=== PATIENT | male | born 1945 | race Caucasian/White ===

== ENCOUNTER 2019-07-19 05:52 | Inpatient (IN) ==
--- NOTE | 2019-07-04 15:18 | PAT Medication Instructions ---
Medication Instructions Date of Service July 04, 2019 Home Medications acetaminophen [Tylenol Extra Strength] 500 mg PO Q6H PRN cyanocobalamin (vitamin B-12) 1,000 mcg IM MONTHLY diltiazem HCl [Cardizem CD] 240 mg PO QAM ergocalciferol (vitamin D2) [Vitamin D2] 50,000 unit PO MONTHLY escitalopram oxalate 20 mg PO QAM finasteride 5 mg PO QPM gabapentin 300 mg PO UD ibuprofen [Advil] 200 mg PO Q6H PRN omeprazole 40 mg PO QAM oxycodone 10 mg PO Q4H PRN potassium chloride 20 meq PO BID red yeast rice 600 mg PO BID vit C,A-Ik-knbkt-lutein-zeaxan [PreserVision AREDS-2] 1 tab PO BID warfarin 5 mg PO UD ASK your surgeon for instructions ibuprofen [Advil] 200 mg PO Q6H PRN ASK your prescriber and surgeon warfarin 5 mg PO UD STOP taking 2 weeks before surgery (or as soon as possible if surgery is within 2 weeks) red yeast rice 600 mg PO BID vit C,R-Jr-rbukg-lutein-zeaxan [PreserVision AREDS-2] 1 tab PO BID DO NOT take the morning of surgery cyanocobalamin (vitamin B-12) 1,000 mcg IM MONTHLY ergocalciferol (vitamin D2) [Vitamin D2] 50,000 unit PO MONTHLY potassium chloride 20 meq PO BID Take morning of surgery With a small sip of water, OTHERWISE NOTHING TO EAT OR DRINK AFTER MIDNIGHT: acetaminophen [Tylenol Extra Strength] 500 mg PO Q6H PRN (okay to take up to 4 hours prior to surgery if needed) diltiazem HCl [Cardizem CD] 240 mg PO QAM escitalopram oxalate 20 mg PO QAM gabapentin 300 mg PO UD omeprazole 40 mg PO QAM oxycodone 10 mg PO Q4H PRN (okay to take up to 4 hours prior to surgery if needed) Take evening before surgery acetaminophen [Tylenol Extra Strength] 500 mg PO Q6H PRN (if needed) finasteride 5 mg PO QPM gabapentin 300 mg PO UD oxycodone 10 mg PO Q4H PRN (if needed) potassium chloride 20 meq PO BID Other Notes If you have any questions please call us at [phone] or [phone] or [phone] or [phone]
--- NOTE | 2019-07-05 08:41 | Anesthesiology Consultation ---
Date of Service July 05, 2019 Assessment & Plan (1) Encounter for pre-operative examination: CHECK PT/INR/PTT AM DOS Chart Review Chart Review: Acceptable Risk for Surgery and Patient seen in Pre Admission Testing Teaching & Discussion Instructed NPO after midnight before surgery, except medications with 15 cc of water. Medication instructions provided according to the PAT guidelines. History Surgery Operation Date: 07/19/19 07:45 Proposed Procedures p Right Sacroiliac Joint Fusion - Costa Pan DO Height/Weight Height: 6 ft Weight: 77.5 kg Allergies Allergy/AdvReac Type Severity Reaction Status Date / Time Penicillins Allergy Hives Verified 07/19/19 06:26 tramadol Allergy Hives Verified 07/19/19 06:26 Medications Home Medications Medication Instructions Recorded Confirmed Last Taken acetaminophen [Tylenol Extra 500 mg PO Q6H PRN 06/30/19 07/19/19 07/17/19 Strength] cyanocobalamin (vitamin B-12) 1,000 mcg IM MONTHLY 06/30/19 07/19/19 06/19/19 diltiazem HCl [Cardizem CD] 240 mg PO QAM 06/30/19 07/19/19 07/18/19 05:00 ergocalciferol (vitamin D2) 50,000 unit PO MONTHLY 06/30/19 07/19/19 Unknown [Vitamin D2] escitalopram oxalate 20 mg PO QAM 06/30/19 07/19/19 07/18/19 19:00 finasteride 5 mg PO QPM 06/30/19 07/19/19 07/18/19 19:00 gabapentin 300 mg PO UD 06/30/19 07/19/19 07/18/19 19:00 ibuprofen [Advil] 200 mg PO Q6H PRN 06/30/19 07/19/19 07/12/19 omeprazole 40 mg PO QAM 06/30/19 07/19/19 07/18/19 19:00 oxycodone 10 mg PO Q4H PRN 06/30/19 07/19/19 07/18/19 19:00 potassium chloride 20 meq PO BID 06/30/19 07/19/19 07/18/19 19:00 red yeast rice 600 mg PO BID 06/30/19 07/19/19 07/12/19 vit C,L-Xt-edxse-lutein-zeaxan 1 tab PO BID 06/30/19 07/19/19 07/12/19 [PreserVision AREDS-2] warfarin 5 mg PO UD 06/30/19 07/19/19 07/15/19 Active Medications Generic Name Dose Route Start Last Admin Trade Name Claytonq PRN Reason Stop Dose Admin Acetaminophen 1,000 mg 07/19/19 06:00 07/19/19 06:53 Tylenol PO 07/19/19 18:00 1,000 mg PREOP SHANIKA Administration Celecoxib 200 mg 07/19/19 06:00 07/19/19 06:53 Celebrex PO 07/19/19 18:00 200 mg PREOP SHANIKA Administration Gabapentin 300 mg 07/19/19 06:00 07/19/19 06:53 Neurontin PO 07/19/19 18:00 300 mg PREOP SHANIKA Administration Lactated Ringer's 1,000 mls @ 15 mls/hr 07/19/19 06:00 07/19/19 06:54 Lr IV 07/20/19 05:59 15 mls/hr .Q24H SHANIKA Administration NPO Date Last Intake of Fluids: 07/19/19 Time Last Intake of Fluids: 00:00 Date Last Intake of Solids: 07/19/19 Time Last Intake of Solids: 00:00 Past Medical History Medical History Atrial fibrillation Dx > 5 years ago. On warfarin. Follows / [facility] [place] BPH (benign prostatic hyperplasia) Chronic back pain Emphysema lung Noted on CXR. GERD (gastroesophageal reflux disease) Hearing deficit BL FL[facility] History of bleeding peptic ulcer History of hepatitis C Just finished treatment, viral load will be check in 6 months. Hypertension On anticoagulant therapy Osteoarthritis Scoliosis Exercise / Class Metabolic Activity II 4-5 Yardwork/Stairs/Walk up hill (Denies CP or SOB with 1 FOS, remains active) Past Surgical History Surgical History History of back surgery History of cardioversion Unsuccessful, Afib returned. History of colonoscopy History of esophagogastroduodenoscopy (EGD) History of gastrectomy 2/2 bleeding ulcers, 1977. History of knee replacement procedure of left knee History of knee replacement procedure of right knee History of tooth extraction Past Anesthesia History No Hx of Anesthesia Complications and No Family Hx of Anesthesia Complications (Other than father PONV) History of PONV No Hx of PONV and No Hx of Motion Sickness Social History Smoking Status: Never smoker Do You Dip or Chew Tobacco: No Hx Alcohol Use: No Hx Substance Use: No substance use type: does not use Review of Systems Pt denies any recent chest pain, shortness of breath, palpitations, cough, fever or URI. Physical Exam Vital Signs Last Vital Signs Temp 36.7 C 07/19/19 06:33 Pulse 73 07/19/19 06:33 Resp 20 07/19/19 06:33 BP 160/96 H 07/19/19 06:33 Pulse Ox 95 07/19/19 06:33 BP: 127/84 P: 72bpm SPO2: 96% RA T: 98.6 F R: 20 ENMT Mouth: + dentures (upper only) and + dental restorations (caps on almost all bottom teeth); no chipped teeth and no loose teeth Thyromental Distance: > or= 3.5 Finger Breadths (4) Mallampati Class: I Neck normal visual inspection; neck extension not limited Respiratory normal respiratory effort Auscultation: lungs clear to auscultation bilaterally Cardiovascular Rate/Rhythm: regular rate; + abnormal rhythm (irreg irreg) Heart Sounds: no murmur Vessels: no carotid bruit Extremities: no edema Musculoskeletal Spine: + kyphosis (thoracic/cervical) Testing Laboratory Results 07/05/19 08:45 07/05/19 08:45 PT 11.9 Seconds (9.0-12.0) 07/19/19 06:45 INR 1.2 (0.9-1.1) H 07/19/19 06:45 APTT 29.1 Seconds (21.0-31.0) 07/19/19 06:45 Blood Type O Positive 07/05/19 08:45 Antibody Screen POSITIVE A 07/05/19 08:45 Spoke to Paula at [facility]. Patient + for three antibodies. If further testing needed she will follow up. Electrocardiogram Date: 07/05/19 Findings: + AFIB @ (69bpm) Left axis deviation. Min voltage criteria for LVH, may be normal variant. Chest X-Ray Date: 07/05/19 Findings: + NAD FINDINGS: PA and lateral chest radiographs are obtained. No prior studies are available for comparison at the time of dictation. The heart is enlarged noting atherosclerotic calcification of the thoracic aorta. The pulmonary vasculature is noncongested. Emphysematous change is noted. There is no airspace consolidation or pleural effusion. There is no pneumothorax. The skeletal structures are osteopenic. The bony thorax appears intact. Fusion hardware is partially imaged in the upper lumbar spine. Numerous surgical clips are noted in the upper abdomen. IMPRESSION: Cardiomegaly and emphysema with no active disease in the chest. Echocardiogram Date: 07/25/18 EF: 55-60% Compared to prior study there is no significant change. Normal ejection fraction. Mild concentric hypertrophy observed. No regional wall motion normalities of the left ventricle. Severe biatrial enlargement. Mildly calcified aortic valve without hemodynamically significant aortic stenosis and trace aortic regurgitation. Mild to moderate mitral and tricuspid valve regurgitation. RVSP/PASP measures 40 to 45 mmHg.
--- NOTE | 2019-07-05 09:32 | XRay Report ---
TWO VIEW CHEST CLINICAL HISTORY: Preoperative examination. FINDINGS: PA and lateral chest radiographs are obtained. No prior studies are available for compariso n at the time of dictation. The heart is enlarged noting atherosclerotic calcification of the thoraci c aorta. The pulmonary vasculature is noncongested. Emphysematous change is noted. There is no airspa ce consolidation or pleural effusion. There is no pneumothorax. The skeletal structures are osteopeni c. The bony thorax appears intact. Fusion hardware is partially imaged in the upper lumbar spine. Num erous surgical clips are noted in the upper abdomen. IMPRESSION: Cardiomegaly and emphysema with no active disease in the chest. Electronically signed by: Duarte Fox M.D. 07/05/2019 9:31 AM
[2019-07-05 11:20] LABS: Basophils # (auto) 0.03 K/uL (0-0.2); Basophils % (auto) 0.7 %; Eosinophils # (auto) 0.26 K/uL (0-0.5); Eosinophils % (auto) 5.8 %; Hematocrit (blood only) 39.5 % (42-52); Hemoglobin 12.9 g/dL (14.0-18.0); Lymphocytes % (auto) 24.7 %; Mean Corpuscular Hemoglobin 29.2 pg (25-34); Mean Corpuscular Hgb Conc 32.7 g/dL (32-36); Mean Corpuscular Volume 89.4 fL (80-100); Mean Platelet Volume 10.1 fL (7.4-10.4); Monocytes # (auto) 0.45 K/uL (0.11-0.59); Monocytes % (auto) 10.1 %; Neutrophils # (auto) 2.61 K/uL (1.4-6.5); Neutrophils % (auto) 58.7 %; Platelet Count 191 K/uL (130-400); RDW Coefficient of Variation 13.7 % (11.5-14.5); RDW Standard Deviation 44.9 fL (36.4-46.3); Red Blood Count 4.42 M/uL (4.7-6.1); White Blood Count 4.45 K/uL (4.8-10.8)
[2019-07-05 11:27] LABS: BUN Creatinine Ratio 19.8 (10-20); Calcium 9.3 mg/dl (8.5-10.1); Creatinine Clr Calc Pharmacy 75.2 ml/min; Est GFR (African American) 92.7; Potassium 4.2 mmol/L (3.5-5.1)
[2019-07-05 11:52] LABS: INR 3.5 (0.9-1.1); Partial Thromboplastin Ratio 1.6; Partial Thromboplastin Time 44.1 Seconds (21.0-31.0); Prothrombin Time 32.5 Seconds (9.0-12.0)
[2019-07-19] MEDS ORDERED: ACETAMINOPHEN 500 MG TAB PO SCH (06:00)
[2019-07-19] MEDS ORDERED: CeleBREX 200 MG CAP PO SCH (06:00)
[2019-07-19] MEDS ORDERED: LR 15ML/HR IV SCH (06:00)
[2019-07-19] MEDS ORDERED: CLINDAMYCIN 600 MG/54 ML BAG IV SCH (06:00)
[2019-07-19] MEDS ORDERED: GABAPENTIN 300 MG CAP PO SCH (06:00)
[2019-07-19] MEDS ORDERED: fentaNYL citrate 100 MCG/2 ML VIAL ONE ×2 (06:35→08:15)
[2019-07-19] MEDS ORDERED: HYDROmorphone INJ 2 MG/ML SYR/VIAL ONE (06:35)
[2019-07-19] MEDS ORDERED: MIDAZOLAM HCL 1 MG/ML 2ML VIAL ONE (06:35)
[2019-07-19] MEDS ORDERED: ONDANSETRON INJ 2 MG/ML 2 ML VIAL ONE (06:37)
[2019-07-19] MEDS ORDERED: NEOSTIGMINE METHYLSULFATE 1 MG/ML 10ML VIAL ONE (06:37)
[2019-07-19] MEDS ORDERED: DEXAMETHASONE SOD INJ 4 MG/ML VIAL ONE (06:37)
[2019-07-19] MEDS ORDERED: LIDOCAINE HCL 2% 2 ML VIAL/AMP(20MG/ML) INFIL ONE (06:37)
[2019-07-19] MEDS ORDERED: GLYCOPYRROLATE 0.2 MG/ML VIAL ONE (06:37)
[2019-07-19] MEDS ORDERED: ROCURONIUM BROMIDE 10 MG/ML 5 ML VIAL ONE (06:37)
[2019-07-19] MEDS ORDERED: PROPOFOL IV EMULSION 10 MG/ML 20 ML VIAL IV ONE (06:37)
[2019-07-19 07:06] LABS: INR 1.2 (0.9-1.1); Partial Thromboplastin Ratio 1.1; Partial Thromboplastin Time 29.1 Seconds (21.0-31.0); Prothrombin Time 11.9 Seconds (9.0-12.0)
[2019-07-19] MEDS ORDERED: BACITRACIN INJ 50,000 UNIT VIAL ONE (07:10)
[2019-07-19] MEDS ORDERED: BUPIVACAINE/EPINEPHRINE 0.25% 1:200,000 30 ML VIAL ONE (07:10)
[2019-07-19] MEDS ORDERED: BUPIVACAINE/EPINEPHRINE 0.5% MPF 1:200,000 10 ML VIAL ONE (07:11)
[2019-07-19] MEDS ORDERED: HYDROmorphone INJ 1 MG/ML SYRINGE IV PRN (07:27)
[2019-07-19] MEDS ORDERED: LABETALOL HCL IV 5 MG/ML 20ML IV PRN (07:27)
[2019-07-19] MEDS ORDERED: ATROPINE SULFATE 0.1 MG/ML 10ML SYR IV PRN (07:27)
[2019-07-19] MEDS ORDERED: ONDANSETRON INJ 2 MG/ML 2 ML VIAL IV PRN (07:27)
--- NOTE | 2019-07-19 07:28 | History & Physical Bridge Note ---
Date of Service July 19, 2019 History & Physical Bridge Note I have examined the patient, reviewed the History & Physical and in the interval since the performance of the History & Physical I have noted the following changes of clinical significance: no changes noted
--- NOTE | 2019-07-19 07:29 | History & Physical Report ---
Date of Service July 19, 2019 Assessment & Plan (1) Sacroiliitis: Right sacroiliac fusion Present on Admission?: Yes History of Present Illness Chief Complaint: Right SI joint pain Primary Care Provider: Jaimie Sanders This is a 73-year-old male presents with bilateral SI joint dysfunction. After failing extensive course of nonoperative care is here for surgical intervention. Allergies Allergy/AdvReac Type Severity Reaction Status Date / Time Penicillins Allergy Hives Verified 07/19/19 06:26 tramadol Allergy Hives Verified 07/19/19 06:26 Home Medications Home Medications Medication Instructions Recorded Confirmed Type acetaminophen [Tylenol Extra 500 mg PO Q6H PRN 06/30/19 07/19/19 History Strength] cyanocobalamin (vitamin B-12) 1,000 mcg IM MONTHLY 06/30/19 07/19/19 History diltiazem HCl [Cardizem CD] 240 mg PO QAM 06/30/19 07/19/19 History ergocalciferol (vitamin D2) 50,000 unit PO MONTHLY 06/30/19 07/19/19 History [Vitamin D2] escitalopram oxalate 20 mg PO QAM 06/30/19 07/19/19 History finasteride 5 mg PO QPM 06/30/19 07/19/19 History gabapentin 300 mg PO UD 06/30/19 07/19/19 History ibuprofen [Advil] 200 mg PO Q6H PRN 06/30/19 07/19/19 History omeprazole 40 mg PO QAM 06/30/19 07/19/19 History oxycodone 10 mg PO Q4H PRN 06/30/19 07/19/19 History potassium chloride 20 meq PO BID 06/30/19 07/19/19 History red yeast rice 600 mg PO BID 06/30/19 07/19/19 History vit C,X-Qj-vanxi-lutein-zeaxan 1 tab PO BID 06/30/19 07/19/19 History [PreserVision AREDS-2] warfarin 5 mg PO UD 06/30/19 07/19/19 History Past Med/Surg History Medical History Atrial fibrillation Dx > 5 years ago. On warfarin. Follows / [facility] [place] BPH (benign prostatic hyperplasia) Chronic back pain Emphysema lung Noted on CXR. GERD (gastroesophageal reflux disease) Hearing deficit BL [facility] History of bleeding peptic ulcer History of hepatitis C Just finished treatment, viral load will be check in 6 months. Hypertension On anticoagulant therapy Osteoarthritis Scoliosis Surgical History History of back surgery History of cardioversion Unsuccessful, Afib returned. History of colonoscopy History of esophagogastroduodenoscopy (EGD) History of gastrectomy 2/2 bleeding ulcers, 1977. 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 Results & Data Vital Signs (Past 12 Hours) Vital Signs Temp Pulse Resp BP Pulse Ox 07/19/19 06:33 36.7 C 73 20 160/96 H 95
[2019-07-19] MEDS ORDERED: LARYING-O-JET KIT (LTA) ONE (08:06)
[2019-07-19] MEDS ORDERED: KETOROLAC 30 MG/ML VIAL ONE (08:06)
[2019-07-19] MEDS ORDERED: HYDROmorphone INJ 0.5 MG/0.5 ML SYR IV PRN ×2 (08:51)
[2019-07-19] MEDS ORDERED: OXYCODONE HCL IR 5 MG TAB (IMMEDIATE RELEASE) PO PRN ×2 (08:51)
--- NOTE | 2019-07-19 08:51 | Operative Report ---
Post Operative Report Pre & Post Diagnosis Operation Date: 07/19/19 07:45 Pre-Op Diagnosis: Sacroiliac Joint Dysfunction Post-Op Diagnosis: Sacroiliac Joint Dysfunction I identified the patient and participated in the time-out.: Yes Procedure Operation Date: 07/19/19 07:45 Actual Procedures #1 open right sacroiliac joint fusion. #2 placement of 20 mm allograft filled with infuse collagen sponge within the right SI joint. #3 placement of 3 percutaneous FLORES-coated slotted screws across the right SI joint. Surgeon Costa Pan, Passenger Interline Clerk Briana Grace Estimated Blood Loss 20 Findings Consistent with Post-Op Diagnosis Specimens None Indications This is a 74-year-old male well-known to the presents with significant dy sfunction of the right SI joint pain. After failing extensive course of nonoperative care elected to go above this procedure. Description of Procedure Patient was met with identified informed consent obtained. Patient was then taken to the operative suite underwent an patient placed in a prone position the Per table chest padded bolsters. All bony prominences well-padded eyes inspected to ensure no external pressure placed upon the peer at this point the right upper buttock was prepped and draped in normal sterile fashion. The assistance of fluoroscopy identified the right SI joint including inlet outlet and lateral views. I then created a approximately 4 cm incision between the posterior superior iliac spine and the posterior inferior iliac spine. I opened up the right SI joint and visualized it plate. After placing guidewire within the joint verified my position with fluoroscopy I placed a joint asset recovery specialist and working Ira within the right SI joint. It was then curetted to bleeding bone and a 20 mm bone allograft filled with infuse collagen sponge was tapped in position. Then proceeded to the percutaneous screw portion of the procedure. I created another 3 cm incision along the right upper buttock in line with the posterior slope of the sacrum. A guidewire was then placed in the superior aspect of the SI joint. I verified my position and inlet outlet views. Dilated to 10 mm drill drilled across the joint. I measured a 50 mm FLORES-coated slotted screw. It was felt infuse collagen sponge and placed across the joint. It demonstrated excellent fit and purchase. Using a an outrigger guide I placed a second distal screw in a similar fashion followed by a third screw. They were 40 mm followed by 30 mm in length again both FLORES-coated slotted and filled with local autograft and infuse collagen sponge. The incisions were then copiously irrigated and closed with subcutaneous Vicryl and 4 Monocryl for final skin closure. Steri-Strips dressings placed. Patient will continue PACU stable condition. Please note Briana Grace was present at the entire procedure involved the patient positioning complex portions of the surgery and final skin closure. I attest to the content of the Intraoperative Record and any orders documented therein. Any exceptions are noted below.
[2019-07-19] MEDS ORDERED: METOPROLOL TARTRATE 1 MG/ML VIAL IV ONE (08:53)
[2019-07-19] MEDS ORDERED: ESMOLOL HCL INJ 10 MG/ML 10ML VIAL IV ONE (09:08)
--- NOTE | 2019-07-19 09:32 | Anesthesiology Progress Note ---
Date of Service July 19, 2019 Anesthesia Post Procedure Vital Signs Vital Signs: Temp Pulse Pulse Resp BP Pulse Ox 07/19/19 09:30 69 14 123/77 95 07/19/19 09:20 74 16 129/81 99 07/19/19 09:10 68 16 131/87 99 07/19/19 09:03 37.2 C 80 16 148/96 H 100 07/19/19 06:33 36.7 C 73 20 160/96 H 95 Transfer of Care Handoff Completed per policy Notes Mental Status: alert / awake / arousable Patient Amnestic to Procedure: Yes Nausea / Vomiting: adequately controlled Pain: adequately controlled Airway Patency, RR, SpO2: stable & adequate BP & HR: stable & adequate Hydration State: stable & adequate Anesthetic Complications: no major complications apparent
--- NOTE | 2019-07-19 09:34 | Fluoroscopy Report ---
FL pelvis 1-2V CLINICAL HISTORY: 74 years-old Male presenting with RT SI JOINT FUSION. TECHNIQUE: 3 fluoroscopic image(s) recorded as part of an intraoperative procedure. COMPARISON: None. FINDINGS/IMPRESSION: 3 talus through fixation of the right sacroiliac joint. Partially visualized posterior bilateral duong spedicular screw and sophia fixation of the lower lumbar spine with interbody spacers. Please see surgical report for further details. Fluoroscopy dosage (mGy): 59.3. Fluoroscopy time: 147.3 seconds. Number or time of high level fluoroscopy (HLF), digital spot, or digital subtraction images: 7.0 seco nds. Electronically signed by: Wallace Forman M.D. 07/19/2019 9:33 AM
== END 2019-07-19 10:47 | disposition home or self-care (01) | DRG 460 ==
LOC: ASU 05:52 → 3E 09:30 → ASU 10:47